=== PATIENT | female | born 1955 | race Caucasian/White ===

== ENCOUNTER 2016-08-02 13:29 | Inpatient (IN) | payer OTHER ==
[~2016-08-02] VITALS: Ht 154.9 cm; Wt 68.0 kg
[~2016-08-02 13:29] MED LIST: ATIVAN1 MG PO; CELEXA20 MG PO; NITROGLYCE0.4 MG/Act SL
[2016-08-02 13:32] VITALS: BP 142/68
--- NOTE | 2016-08-02 13:40 | NUR ---
EKG REVIEWED BY MD BONE TO WAIT FOR AVAILABLE ROOM---PT DESCRIBED PAIN NOW MILD DISCOMFORT--FULL CLEAR SPEECH WITH S/S RESP DISTRESS OR ADDED CP
--- NOTE | 2016-08-02 14:28 | NUR ---
Patient ambulated to bed 1.
--- NOTE | 2016-08-02 14:36 | NUR ---
61/F C/O PRESSURE TYPE CP RADIATING TO JAW @ NOON. TOOK 1 NITRO TAB. CURRENTLY MILD DISCOMFORT TO BACK OF HEAD /NECK. HX TX 2011, DEPRESSION, AND ANXIETY. DENIES N/V/D; SKIN IS PINK/WARM/DRY; AAOX4 WITH EVEN AND STEADY GAIT; LUNGS CLEAR BL; HR EVEN AND REGULAR; PT DENIES ANY FEVER, SOB, OR COUGH AT THIS TIME; PATIENT STATES DISCOMFORT OF 2/10 AT THIS TIME; VSS; PATIENT POSITIONED FOR COMFORT; HOB ELEVATED; BEDRAILS UP X2; BED DOWN. ER MD MADE AWARE OF PT STATUS.
--- NOTE | 2016-08-02 15:30 | NUR ---
Patient being evaluated by physician at bedside.
[2016-08-02] MEDS ORDERED: ASPIRIN 81 MG TAB.CHEW PO ONE (15:40)
--- NOTE | 2016-08-02 16:49 | NUR ---
Patient will be admitted to care of DR. IRIZARRY. Admited to TELE. Will go to [id number]. Belongings list completed. Report GIVEN to NILESH MADDOX.
[2016-08-02] MEDS ORDERED: NITROGLYCERIN 0.4 MG TAB SL PRN (16:50)
[2016-08-02] MEDS ORDERED: DOCUSATE SODIUM 250 MG GELCAP PO PRN (16:50)
[2016-08-02] MEDS ORDERED: POTASSIUM CHLORIDE 10 MEQ TABER PO PRN (16:50)
[2016-08-02] MEDS ORDERED: guaiFENesin DM 200/20 MG-10 ML 10 ML UDC PO PRN (16:50)
[2016-08-02] MEDS ORDERED: MAGNESIUM OXIDE 400 MG TAB PO PRN (16:50)
[2016-08-02] MEDS ORDERED: MORPHINE SULFATE 2 MG/ML SYR IVP PRN (16:50)
[2016-08-02] MEDS ORDERED: MAG SULF 2000 MG/WATER PREMIX 50 ML IV PRN (16:50)
[2016-08-02] MEDS ORDERED: SODIUM PHOSPHATE 118 ML ENEM RC PRN (16:50)
[2016-08-02] MEDS ORDERED: HYDROcodone/APAP 5/325 MG 1 TAB TAB PO PRN ×2 (16:50)
[2016-08-02] MEDS ORDERED: ACETAMINOPHEN 650 MG SUPP RC PRN (16:50)
[2016-08-02] MEDS ORDERED: ALUMINUM HYD/MAG/SIMETHICONE 30 ML UDC PO PRN (16:50)
[2016-08-02] MEDS ORDERED: ONDANSETRON 4 MG/2 ML VIAL IVP PRN (16:50)
[2016-08-02] MEDS ORDERED: cloNIDine 0.1 MG TAB PO PRN (16:50)
[2016-08-02] MEDS ORDERED: BISACODYL 10 MG SUPP RC PRN (16:50)
[2016-08-02] MEDS ORDERED: POTASSIUM CHLORIDE 40 MEQ, LIDOCAINE 1% 25 MG in NACL 0.9% 250 ML IV PRN (16:50)
[2016-08-02] MEDS ORDERED: ALBUTEROL 0.083% 2.5 MG/3 ML NEBU INH PRN (16:50)
[2016-08-02] MEDS ORDERED: IPRATROPIUM 0.02% 0.5 MG/2.5 ML NEBU INH PRN (16:50)
[2016-08-02] MEDS ORDERED: ACETAMINOPHEN 325 MG TAB PO PRN (16:50)
[2016-08-02] MEDS ORDERED: diphenhydrAMINE 50 MG/ML VIAL IVP PRN (16:50)
[2016-08-02 17:10] VITALS: BP 135/103
--- NOTE | 2016-08-02 17:10 | NUR ---
RECEIVED PATIENT FROM ER WITH CHIEF COMPLAINING OF CHEST PAIN. PATIENT APPEARED TO BE CALM AWAKE AND RESTING WELL. AAOX4 NO SOB OR SIGN OF RESPIRATORY DISTRESS NOTED. INITIAL ASSESSMENT DONE. SKIN INTACT. PATIENT DENIED ANY PAIN OR CHEST DISCOMFORT AT THIS TIME. LUNG SOUNDED CLEAR. PATIENT HAS IV TO RIGHT WRIST 22G INTACT AND FLUSHED WELL. MRSA SWAB DONE. REORIENTED PATIENT TO CURRENT UNIT. PLAN OF CARE AND MANAGEMENT DISCUSSED, PATIENT VERBALIZED UNDERSTANDING. CALL LIGHT WITHIN REACH. FAMILY MEMBER AT BEDSIDE. WILL CONTINUE TO MONITOR.
--- NOTE | 2016-08-02 18:10 | NUR ---
RECEIVED TELEPHONE ORDER FROM DR PATRICK FOR SHELDON SCAN AT NOON TOMORROW.
--- NOTE | 2016-08-02 19:22 | NUR ---
ENDORSED PATIENT CURRENT PLAN OF CARE TO NIGHT NURSE DEONDRE GALLOWAY. PATIENT SLEEP WELL IN BED WITH NO SIGN OF DISTRESS NOTED.
--- NOTE | 2016-08-02 19:23 | NUR ---
RECEIVED PT IN STABLE CONDITION FROM NILESH MADDOX. NO SOB, NO SIGNS OF DISTRESS. PT DENIES PAIN AT THIS TIME. VS STABLE ON ROOM AIR. PT C/O ANXIETY, WILL MEDICATE PER MD ORDER. IV TO RT WRIST 22G PATENT, ASYMPTOMATIC, INTACT, SALINE LOCKED. SKIN INTACT. PLAN OF CARE DISCUSSED WITH PT. SAFETY MEASURES IN PLACE. CALL LIGHT WITHIN REACH. WILL CONTINUE TO MONITOR.
--- NOTE | 2016-08-02 19:25 | NUR ---
RECEIVED PATIENT FROM ER WITH CHIEF COMPLAINING OF CHEST PAIN. PATIENT APPEARED TO BE CALM AWAKE AND RESTING WELL. AAOX4 NO SOB OR SIGN OF RESPIRATORY DISTRESS NOTED. INITIAL ASSESSMENT DONE. SKIN INTACT. PATIENT DENIED ANY PAIN OR CHEST DISCOMFORT AT THIS TIME. LUNG SOUNDED CLEAR. PATIENT HAS IV TO RIGHT WRIST 22G INTACT AND FLUSHED WELL. MRSA SWAB DONE. REORIENTED PATIENT TO CURRENT UNIT. PLAN OF CARE AND MANAGEMENT DISCUSSED, PATIENT VERBALIZED UNDERSTANDING. CALL LIGHT WITHIN REACH. FAMILY MEMBER AT BEDSIDE. WILL CONTINUE TO MONITOR. Addendum: 08/02/16 at 1927 by Homer Verma RN WRONG PATIENT.
[2016-08-02 20:00] VITALS: BP 114/62
[2016-08-02] MEDS: LORazepam 2 MG/ML VIAL IVP PRN (20:53)
--- NOTE | 2016-08-02 20:53 | NUR ---
MEDICATED PT FOR ANXIETY PER MD ORDER. PT TOLERATED WELL. NO SOB, NO SIGNS OF DISTRESS. IV SITE ASYMPTOMATIC, INTACT, PATENT, SALINE LOCKED. PLAN OF CARE DISCUSSED WITH PT. SAFETY MEASURES IN PLACE. CALL LIGHT WITHIN REACH. WILL CONTINUE TO MONITOR.
--- NOTE | 2016-08-02 22:11 | NUR ---
PT ASLEEP IN BED. NO SOB, NO SIGNS OF DISTRESS. IV SITE ASYMPTOMATIC, INTACT, PATENT, SALINE LOCKED. SAFETY MEASURES IN PLACE. CALL LIGHT WITHIN REACH. WILL CONTINUE TO MONITOR.
--- NOTE | 2016-08-02 23:10 | NUR ---
PT ASLEEP, ROOM AIR , SAT 97%, NO SOB OR DISTRESS NOTED, NO HHN TX NEEDED AT THIS TIME
[2016-08-03] VITALS: BP 100/72
--- NOTE | 2016-08-03 00:06 | NUR ---
VS STABLE ON ROOM AIR. NO SOB, NO SIGNS OF DISTRESS. IV SITE ASYMPTOMATIC, INTACT, PATENT, SALINE LOCKED. PT DENIES PAIN AT THIS TIME. PLAN OF CARE DISCUSSED WIT PT. SAFETY MEASURES IN PLACE. CALL LIGHT WITHIN REACH. WILL CONTINUE TO MONITOR.
[2016-08-03 04:00] VITALS: BP 116/57
--- NOTE | 2016-08-03 07:05 | NUR ---
RECEIVED REPORT FROM NIGHT NURSE NILESH KELLY. PATIENT APPEARED TO BE CALM FULLY AWAKE AND RESTING WELL IN BED. AAOX4 NO SOB OR SIGN OF RESPIRATORY DISTRESS NOTED. INITIAL ASSESSMENT DONE. SKIN INTACT. PATIENT DENIED ANY PAIN OR CHEST DISCOMFORT AT THIS TIME. LUNG SOUNDED CLEAR. PATIENT HAS IV TO RIGHT WRIST 22G INTACT AND FLUSHED WELL. PLAN OF CARE AND MANAGEMENT DISCUSSED, PATIENT VERBALIZED UNDERSTANDING. CALL LIGHT WITHIN REACH. WILL CONTINUE TO MONITOR.
--- NOTE | 2016-08-03 07:15 | NUR ---
ENDORSED PT IN STABLE CONDITION TO NILESH MADDOX. ALL NEEDS HAVE BEEN MET AT THIS TIME.
[2016-08-03] MEDS ORDERED: REGADENOSON 0.4 MG/5 ML SYR IV ONE (07:55)
[2016-08-03 08:00] VITALS: BP 108/59
--- NOTE | 2016-08-03 08:28 | NUR ---
PATIENT HAS BEEN SCREENED AND CATEGORIZED MODERATE NUTRITION RISK. PATIENT WILL BE SEEN WITHIN 3-5 DAYS OF ADMISSION. 08/05/16-08/07/[address]
[2016-08-03] MEDS: ASPIRIN 81 MG TAB.CHEW PO SCH (08:36)
[2016-08-03] MEDS: CITALOPRAM 20 MG TAB PO SCH (08:36)
--- NOTE | 2016-08-03 08:37 | NUR ---
INSTRUCTED PATIENT TO REMAIN NPO FOR LEXISCAN AT NOON. PATIENT VERBALIZED UNDERSTANDING.
[2016-08-03] MEDS ORDERED: ENOXAPARIN 40 MG/0.4 ML SYR SUBQ SCH (09:00)
--- NOTE | 2016-08-03 11:05 | NUR ---
PATIENT LEFT THE UNIT TO RADIOLOGY FOR SHELDON SCAN, PATIENT IN STABLE CONDITION.
--- NOTE | 2016-08-03 13:53 | NUR ---
CM NOTE INITIAL REVIEW SENT TO [facility] FAX# [phone] ATTN: NOVEMBER # [phone]
--- NOTE | 2016-08-03 14:10 | NUR ---
PATIENT IS BACK TO UNIT FROM [facility]. NO SIGN OF DISTRESS NOTED. DENIED ANY PAIN OR CHEST DISCOMFORT. PATIENT HOWEVER REQUESTED MEDICATION FOR ANXIETY. WILL MEDICATE PATIENT.
[2016-08-03] MEDS: LORazepam 2 MG/ML VIAL IVP PRN (14:28)
--- NOTE | 2016-08-03 15:16 | NUR ---
LEXISCAN STRESS TEST DONE
[2016-08-03 16:00] VITALS: BP 117/68
--- NOTE | 2016-08-03 18:26 | NUR ---
SPOKE TO DR PATRICK AND READ BACK MD IMPRESSION OF LEXISCAN RESULT. RECEIVED TELEPHONE ORDERS FOR LABS DRAWN IN AM TOMORROW.
--- NOTE | 2016-08-03 19:20 | NUR ---
ENDORSED PATIENT CURRENT PLAN OF CARE TO NIGHT NURSE ANAT GALLOWAY. PATIENT RESTING WELL IN BED WITH NO SIGN OF DISTRESS NOTED.
--- NOTE | 2016-08-03 19:25 | NUR ---
RECEIVED PT AWAKE WATCHING A MOVIE ON HER LAPTOP, DENIES ANY PAIN, VITAL SIGNS STABLE, POC DISCUSSED, SAFETY MEASURES IN PLACE, CALL LIGHT WITHIN REACH.
[2016-08-03 20:00] VITALS: BP 112/65
--- NOTE | 2016-08-03 21:27 | NUR ---
ROUNDED ON PT, SEEN SLEEPING, NO SIGNS OF DISTRESS, MONITORED CLOSELY.
[2016-08-03] MEDS ORDERED: SIMVASTATIN 40 MG TAB PO SCH (22:03)
[2016-08-03] MEDS ORDERED: METOPROLOL 25 MG TAB PO SCH (22:03)
--- NOTE | 2016-08-03 22:41 | NUR ---
STARTED ON LOPRESSOR AND ZOCOR MEDICATION ORDERED BY DR PATRICK, EDUCATION PROVIDED, MADE AWARE OF TRANSFER TO [facility] IN AM FOR A PROCEDURE, INSTRUCTED NPO AFTER BREAKFAST TOMORROW, VERBALIZED UNDERSTANDING.
[2016-08-04] VITALS: BP 114/72
--- NOTE | 2016-08-04 | NUR ---
PT SLEEPING, EASILY AROUSABLE, VITAL SIGNS STABLE, DENIES ANY PAIN, CONTINUE TO MONITOR CLOSELY.
[2016-08-04 04:20] VITALS: BP 113/70
--- NOTE | 2016-08-04 04:30 | NUR ---
ASLEEP, EASILY AROUSABLE, VITAL SIGNS STABLE, DENIES ANY PAIN, TRANSFER CONSENT FORM SIGNED, MONITORED CLOSELY.
--- NOTE | 2016-08-04 05:25 | NUR ---
CALLED DIETARY AND SPOKE TO DEON TO REQUEST IF THEY CAN BRING BREAKFAST A LITTLE EARLY AT 0700, SHE SAID SHE WILL TALKED TO THE COOK AND WILL TRY TO ACCOMMODATE THE REQUEST.
--- NOTE | 2016-08-04 06:40 | NUR ---
AM LABS DRAWN, AMBULATED TO BR WITH STEADY GAIT AND VOIDED FREELY, BREAKFAST TRAY ARRIVED AND GIVEN TO PT, AWARE OF NPO STATUS AFTER BREAKFAST.
--- NOTE | 2016-08-04 07:21 | NUR ---
PT AWAKE, JUST FINISHED EATING BREAKFAST, REPORT GIVEN TO ANDREW GALLOWAY FOR CONTINUITY OF CARE.
--- NOTE | 2016-08-04 07:25 | NUR ---
RECEIVED PT FROM NILESH COPPOLA AWAKE AND EATING BREAKFAST. AAOX4, WITH IV ACCESS ON RIGHT WRIST 22G ON SALINE LOCK INTACT AND PATENT. SKIN IS INTACT. DISCUSSED PLAN OF CARE AND TRANSFER TO [facility], PT VERBALIZED UNDERSTANDING. CALL LIGHT WITHIN REACH, WILL CONTINUE TO MONITOR.
[2016-08-04] MEDS ORDERED: ALBUTEROL 0.083% 2.5 MG/3 ML NEBU INH PRN (07:48)
[2016-08-04] MEDS ORDERED: IPRATROPIUM 0.02% 0.5 MG/2.5 ML NEBU INH PRN (07:49)
[2016-08-04 08:00] VITALS: BP 136/73
[2016-08-04] MEDS ORDERED: METOPROLOL 25 MG TAB PO SCH (09:00)
[2016-08-04] MEDS: ASPIRIN 81 MG TAB.CHEW PO SCH (09:00)
[2016-08-04] MEDS: CITALOPRAM 20 MG TAB PO SCH (09:00)
--- NOTE | 2016-08-04 09:00 | NUR ---
DUE MEDS HELD, PT ON NPO. DR PATRICK IN THE ROOM TO SEE PT.
--- NOTE | 2016-08-04 09:30 | NUR ---
DR. PATRCIK CAME AND SAW PT. EXPLAINED TO PT WHY SHE IS BEING TRANSFERRED AND WHAT SHE IS HAVING DONE OVER THERE AT [facility]. PT VERBALIZED UNDERSTANDING. CONSENT IS SIGNED AND IN CHART. WILL CONTINUE TO MONITOR PT. Addendum: 08/04/16 at 1135 by Cee Babcock RN WRONG PT. NILESH
--- NOTE | 2016-08-04 09:33 | NUR ---
CM NOTE SPOKE TO FALLON OF [facility] WHO IS AWARE OF THE PATIENT'S SCHEDULE FOR A PROCEDURE PH# [phone]. SPOKE TO MOIZ NOVEMBER OF [facility] PH# [phone] AND SHE PROVIDED THE ALS AMBULANCE AUTH# [id number]. SPOKE TO ZABRINA OF [facility] PH# TO SET UP TRANSPORT. PATIENT WILL BE PICKED UP BY [facility] AT 1000AM TIME TODAY GOING TO [facility] FOR PROCEDURE, WILL PASS BY THEIR ER FIRST IT IS THEIR POLICY. CHARGE NURSE JIMMY EXT [phone] AND BEDSIDE NURSE ANDREW EXT [phone] AWARE.
--- NOTE | 2016-08-04 09:50 | NUR ---
WENT OVER THE DISCHARGE EDUCATION. ANSWERED ALL QUESTIONS THAT THE PT HAD. PT VERBALIZED UNDERSTANDING. SIGNED THE D/C PAPERS. PT IN HER OWN CLOTHES. ALL PERSONALIZED ITEMS IN BAG. DAUGHTER AT BEDSIDE. READY TO GO . IV STILL INTACT. TELE BOX STILL INTACT. WILL WAIT TO REMOVE UNTIL [facility] ARRIVES.
--- NOTE | 2016-08-04 10:17 | NUR ---
CM NOTE CONCURRENT REVIEW SENT TO [facility] FAX# [phone] ATTN: NOVEMBER # [phone]
--- NOTE | 2016-08-04 10:28 | NUR ---
CM NOTE PATIENT HAS NOT BEEN PICKED UP BY [facility] YET. SPOKE WITH SALUD OF [facility] PH# [phone] TO FOLLOW UP WHY PATIENT HAS NOT BEEN PICKED UP YET WHEN IT WAS REQUESTED THAT EXECUTIVE ACCOUNT MANAGER TIME IS 1000AM TODAY. SALUD OF [facility] SAID THAT THEIR ALS AMB WILL NOT BE AVAILABLE UNTIL ANOTHER 60-90MINS. NURSE ANDREW EXT [phone] AWARE.
--- NOTE | 2016-08-04 10:30 | NUR ---
SPOKE TO PT. NOTIFIED HER THAT [facility] WILL BE HERE IN ANOTHER 60-90 MIN. NO COMPLAINTS AT THIS TIME. DAUGHTER AT BEDSIDE. WILL CONTINUE TO MONITOR PT.
--- NOTE | 2016-08-04 11:20 | NUR ---
PAGED DR. PATRICK TO NOTIFY HIM OF THE DELAY IN TRANSFER. WAITING FOR HIS CALL.
--- NOTE | 2016-08-04 11:40 | NUR ---
[facility] IS HERE TO TRANSPORT PT. PT IS READY. REMOVED HER TELE BOX, AND HER WRIST BANDS BEFORE SHE LEFT. GAVE REPORT TO THE TRANSPORT. THEY ARE TO GO TO ER AND GET HER PROCESSED THROUGH THERE. TRANSPORTERS ARE AWARE.
--- NOTE | 2016-08-04 11:50 | NUR ---
GAVE REPORT TO MATHEUS JOHNSON RN AT [facility]. REPORTED THAT THE PT IS ON HER WAY VIA [facility].
[2016-08-04] MEDS ORDERED: SIMVASTATIN 40 MG TAB PO SCH (21:00)
== END 2016-08-04 11:45 | disposition short-term general hospital (02) | DRG 198 ==
LOC: MED 13:29 → MTU 16:43
PROVIDERS: ADMIT Internal Medicine Pulmonary Disease; ATTEND Internal Medicine Pulmonary Disease
DX: I25.110 Atherosclerotic heart disease of native coronary artery with unstable angina pectoris (principal); I10 Essential (primary) hypertension; E05.90 Thyrotoxicosis, unspecified without thyrotoxic crisis or storm; F32.9 Major depressive disorder, single episode, unspecified; F41.9 Anxiety disorder, unspecified; Z90.722 Acquired absence of ovaries, bilateral; I25.2 Old myocardial infarction; Z90.49 Acquired absence of other specified parts of digestive tract

== ENCOUNTER 2016-08-04 19:59 | Emergency (ER) | payer OTHER ==
[~2016-08-04] VITALS: Ht 154.9 cm; Wt 68.5 kg
[2016-08-04 20:18] VITALS: BP 109/49
--- NOTE | 2016-08-04 20:56 | NUR ---
PATIENT LEFT WITHOUT BEING SEEN BY DR. GARCIA. NO FURTHER CARE PROVIDED FOR PATIENT.
== END 2016-08-04 20:56 | disposition left against medical advice (07) ==
LOC: MED 19:59
DX: R20.0 Anesthesia of skin (principal); Z53.21 Procedure and treatment not carried out due to patient leaving prior to being seen by health care provider

== ENCOUNTER 2017-03-12 10:51 | Emergency (ER) | payer OTHER ==
[~2017-03-12] VITALS: Ht 154.9 cm; Wt 67.6 kg
[~2017-03-12 10:51] MED LIST changes: -ATIVAN1 MG PO; -CELEXA20 MG PO; +CITA20TA15 PO; +LORA-476 PO; +NITR0.4S14 SL; -NITROGLYCE0.4 MG/Act SL
[2017-03-12 11:02] VITALS: BP 93/74
[2017-03-12] MEDS ORDERED: ONDANSETRON 4 MG ODT PO ONE (11:05)
[2017-03-12] MEDS ORDERED: LORazepam 0.5 MG TAB PO ONE (11:05)
[2017-03-12 11:34] LABS: APPEARANCE,URINE CLEAR (CLEAR); BILIRUBIN,URINE NEGATIVE (NEGATIVE); BLOOD, URINE NEGATIVE (NEGATIVE); COLOR,URINE YELLOW (YELLOW); LEUKOCYTE ESTERASE ,URINE NEGATIVE (NEGATIVE); NITRITE, URINE NEGATIVE (NEGATIVE); UGLUCOSE NEGATIVE (NEGATIVE)
[2017-03-12 11:35] LABS: ANION GAP 8.4 (8-16); CREATININE 0.7 mg/dL (0.6-1.3); POTASSIUM 3.4 mmol/L (3.5-5.1)
[2017-03-12 11:41] LABS: ALBUMIN 3.6 g/dL (3.4-5.0); TOTAL BILIRUBIN 0.6 mg/dL (0.0-1.0)
[2017-03-12 11:45] LABS: RBC,URINE 0-5 (RARE) /HPF (0-5); WBC,URINE 0-5 (RARE) /HPF (0-5)
[2017-03-12 11:54] LABS: BASOPHILS # (AUTO) 0.2 K/uL (0.00-0.22); BASOPHILS % (AUTO) 4.1 % (0.0-2.0); EOSINOPHILS % (AUTO) 0.8 % (0.0-4.0); HEMATOCRIT 42.4 % (36-48); HEMOGLOBIN 13.8 g/dL (12.0-16.0); LYMPHOCYTES # (AUTO) 0.9 K/uL (2.5-16.5); LYMPHOCYTES % (AUTO) 16.3 % (20.5-51.1); MEAN CORPUSCULAR HEMOGLOBIN 29 pg (27-31); MEAN CORPUSCULAR HGB CONC 33 g/dL (33-37); MEAN CORPUSCULAR VOLUME 88 fL (80-94); MONOCYTES # (AUTO) 0.4 K/uL (0.8-1.0); MONOCYTES % (AUTO) 7.4 % (1.7-9.3); NEUTROPHILS # (AUTO) 4.2 K/uL (1.8-7.7); NEUTROPHILS % (AUTO) 71.4 % (42.2-75.2); PLATELET COUNT (AUTO) 200 K/uL (140-450); RED BLOOD CELL COUNT(AUTO) 4.83 MIL/uL (4.20-5.40); RED CELL DISTRIBUTION WIDTH 13.1 % (11.6-13.7); WHITE BLOOD COUNT (AUTO) 5.7 K/uL (4.8-10.8)
[2017-03-12 12:30] VITALS: BP 126/78
== END 2017-03-12 12:30 | disposition home or self-care (01) ==
LOC: MED 10:51
DX: G25.2 Other specified forms of tremor (principal); R00.2 Palpitations; I25.2 Old myocardial infarction; Z79.899 Other long term (current) drug therapy
CPT/HCPCS: 36415; 80053; 81001; 85025; 93005; 99284; S0119; 99285

== ENCOUNTER 2017-06-12 17:34 | Emergency (ER) | payer OTHER ==
[~2017-06-12] VITALS: Ht 154.9 cm; Wt 70.1 kg
[2017-06-12 18:01] VITALS: BP 121/86
--- NOTE | 2017-06-12 18:34 | NUR ---
PT TAKEN TO BED 10.
[2017-06-12] MEDS ORDERED: ASPIRIN 325 MG TAB ONE (18:43)
[2017-06-12] MEDS ORDERED: ASPIRIN 325 MG TAB PO ONE (18:45)
--- NOTE | 2017-06-12 18:45 | NUR ---
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 NAD; ER MD AWARE OF PT STATUS. PT POSITIONED TO COMFORT, BED DOWN. WILL CONTINUE TO MONITOR.
[2017-06-12 18:58] LABS: BASOPHILS # (AUTO) 0.4 K/uL (0.00-0.22); EOSINOPHILS # (AUTO) 0.1 K/uL (0-0.4); HEMATOCRIT 41.1 % (36-48); HEMOGLOBIN 13.6 g/dL (12.0-16.0); LYMPHOCYTES # (AUTO) 1.7 K/uL (2.5-16.5); MEAN CORPUSCULAR HEMOGLOBIN 29 pg (27-31); MEAN CORPUSCULAR HGB CONC 33 g/dL (33-37); MEAN CORPUSCULAR VOLUME 88 fL (80-94); NEUTROPHILS # (AUTO) 4.3 K/uL (1.8-7.7); PLATELET COUNT (AUTO) 248 K/uL (140-450); RED BLOOD CELL COUNT(AUTO) 4.67 MIL/uL (4.20-5.40); RED CELL DISTRIBUTION WIDTH 12.4 % (11.6-13.7); WHITE BLOOD COUNT (AUTO) 7.5 K/uL (4.8-10.8)
--- NOTE | 2017-06-12 19:15 | NUR ---
Pt report given to Pim Rn. Transfer of care at this time.
[2017-06-12 19:16] LABS: ANION GAP 10.8 (8-16); CARBON DIOXIDE 27.2 mmol/L (21-32); CREATININE 0.8 mg/dL (0.6-1.3); PROTHROMBIN TIME 10.2 secs (10.8-13.4)
--- NOTE | 2017-06-12 19:16 | NUR ---
GOT REPORT FROM NILESH HECTOR. PT. RESTING IN BED, NO S/SX OF DISTRESS AT THIS TIME.
[2017-06-12 19:21] LABS: ALBUMIN 3.5 g/dL (3.4-5.0); TOTAL BILIRUBIN 0.4 mg/dL (0.0-1.0)
[2017-06-12] MEDS ORDERED: POTASSIUM CHLORIDE 10 MEQ TABER PO ONE (19:45)
[2017-06-12 20:06] VITALS: BP 117/66
--- NOTE | 2017-06-12 20:06 | NUR ---
Patient discharged with v/s stable. Written and verbal after care instructions given and explained. Patient verbalized understanding. Ambulatory with steady gait. All questions addressed prior to discharge. Advised to follow up with PMD.
[2017-06-13] MEDS ORDERED: ASPIRIN 325 MG TABEC PO SCH (09:00)
== END 2017-06-12 20:06 | disposition home or self-care (01) ==
LOC: MED 17:34
DX: R07.89 Other chest pain (principal); R20.0 Anesthesia of skin; R68.84 Jaw pain; F41.9 Anxiety disorder, unspecified; F32.9 Major depressive disorder, single episode, unspecified; I25.2 Old myocardial infarction; E03.9 Hypothyroidism, unspecified; Z79.899 Other long term (current) drug therapy
CPT/HCPCS: 36415; 71010; 80053; 83880; 84484; 85025; 85610; 85730; 93005; 99285; Q0092

== ENCOUNTER 2017-12-07 16:44 | Emergency (ER) | payer OTHER ==
[~2017-12-07] VITALS: Ht 154.9 cm; Wt 65.8 kg
[2017-12-07 16:54] VITALS: BP 150/84
[2017-12-07 20:00] VITALS: BP 148/80
== END 2017-12-07 17:58 | disposition home or self-care (01) ==
LOC: MED 16:44
DX: N39.0 Urinary tract infection, site not specified (principal); R51 Headache; I25.2 Old myocardial infarction; E03.9 Hypothyroidism, unspecified; Z98.890 Other specified postprocedural states
CPT/HCPCS: 81002; 99283

== ENCOUNTER 2018-04-09 20:06 | Emergency (ER) | payer OTHER ==
[~2018-04-09] VITALS: Ht 154.9 cm; Wt 65.8 kg
[2018-04-09 20:09] VITALS: BP 153/86
[2018-04-09] MEDS ORDERED: FLUO10CA21 PO (20:19)
[2018-04-09] MEDS ORDERED: METH500T14 PO (20:20)
--- NOTE | 2018-04-09 20:43 | NUR ---
PATIENT LEFT WITHOUT BEING SEEN BY DR. GARCIA. NO FURTHER CARE PROVIDED FOR PATIENT.
--- NOTE | 2018-04-09 20:43 | NUR ---
PT WALKED IN TO BED 3, STATES " I THINK IM GOING TO LEAVE, I ACTUALLY FEEL BETTER". PATIENT LEFT ED UNIT.
== END 2018-04-09 20:43 | disposition left against medical advice (07) ==
LOC: MED 20:06
DX: K13.0 Diseases of lips (principal); Z53.21 Procedure and treatment not carried out due to patient leaving prior to being seen by health care provider

== ENCOUNTER 2018-05-22 11:45 | Emergency (ER) | payer OTHER ==
[~2018-05-22] VITALS: Ht 154.9 cm; Wt 65.8 kg
[~2018-05-22 11:45] MED LIST changes: -CITA20TA15 PO; +FLUO10CA21 PO; -LORA-476 PO; +METH500T14 PO
[2018-05-22 11:48] VITALS: BP 138/56
[2018-05-22 13:09] VITALS: BP 128/67
== END 2018-05-22 13:09 | disposition home or self-care (01) ==
LOC: MED 11:45
DX: F41.9 Anxiety disorder, unspecified (principal); K21.9 Gastro-esophageal reflux disease without esophagitis; E07.9 Disorder of thyroid, unspecified; Z79.899 Other long term (current) drug therapy
CPT/HCPCS: 81002; 93005; 99283

== ENCOUNTER 2018-07-09 09:37 | Emergency (ER) | payer OTHER ==
[~2018-07-09] VITALS: Ht 154.9 cm; Wt 67.6 kg
[2018-07-09 09:43] VITALS: BP 114/62
--- NOTE | 2018-07-09 09:48 | NUR ---
PT AMBULATES TO BED 7
--- NOTE | 2018-07-09 10:15 | NUR ---
BIB SELF. C/O LLQ ABD PAIN X 2 WEEKS STATES IT STARTED SUDDENLY WHEN SHE WAS WALKING. DENIES CONSTIPATION, DENIES BLOOD IN URINE. PT REPORTS PAIN 5/10, RADIATING TO LEFT LEG. PT ALSO STATES SHE SUFFERS FROM ANXIETY AND FEELS A LITTLE SHORT OF BREATH AND CHEST PRESSURE. DENIES OTHER SYMPTOMS AT THIS TIME.
--- NOTE | 2018-07-09 10:34 | NUR ---
Patient being evaluated by physician at bedside.
--- NOTE | 2018-07-09 10:50 | NUR ---
PT TAKEN TO CT VIA WHEELCHAIR
--- NOTE | 2018-07-09 11:01 | NUR ---
PT RETURNED FROM CT
[2018-07-09 11:15] LABS: BASOPHILS % (AUTO) 0.7 % (0.0-2.0); EOSINOPHILS # (AUTO) 0.1 K/uL (0-0.4); EOSINOPHILS % (AUTO) 1.7 % (0.0-4.0); HEMATOCRIT 43.8 % (36-48); HEMOGLOBIN 14.1 g/dL (12.0-16.0); LYMPHOCYTES # (AUTO) 1.6 K/uL (2.5-16.5); LYMPHOCYTES % (AUTO) 36.1 % (20.5-51.1); MEAN CORPUSCULAR HEMOGLOBIN 28 pg (27-31); MEAN CORPUSCULAR HGB CONC 32 g/dL (33-37); MEAN CORPUSCULAR VOLUME 87.4 fL (80-94); MONOCYTES # (AUTO) 0.3 K/uL (0.8-1.0); MONOCYTES % (AUTO) 7.3 % (1.7-9.3); NEUTROPHILS # (AUTO) 2.4 K/uL (1.8-7.7); NEUTROPHILS % (AUTO) 54.2 % (42.2-75.2); PLATELET COUNT (AUTO) 222 K/uL (140-450); RED BLOOD CELL COUNT(AUTO) 5.01 MIL/uL (4.20-5.40); RED CELL DISTRIBUTION WIDTH 13.7 % (11.6-13.7); WHITE BLOOD COUNT (AUTO) 4.5 K/uL (4.8-10.8)
[2018-07-09 11:17] LABS: APPEARANCE,URINE CLEAR (CLEAR); BILIRUBIN,URINE NEGATIVE (NEGATIVE); BLOOD, URINE NEGATIVE (NEGATIVE); COLOR,URINE YELLOW (YELLOW); LEUKOCYTE ESTERASE ,URINE TRACE (NEGATIVE); NITRITE, URINE NEGATIVE (NEGATIVE); UGLUCOSE NEGATIVE (NEGATIVE)
[2018-07-09 11:23] LABS: WBC,URINE 6-15 (FEW) /HPF (0-5)
[2018-07-09 11:24] LABS: RBC,URINE NONE SEEN /HPF (0-5)
[2018-07-09 11:35] LABS: ALBUMIN 3.9 g/dL (3.4-5.0); ANION GAP 11.5 (8-16); CARBON DIOXIDE 30.3 mmol/L (21-32); CREATININE 0.7 mg/dL (0.6-1.3); POTASSIUM 3.8 mmol/L (3.5-5.1); TOTAL BILIRUBIN 0.3 mg/dL (0.0-1.0)
--- NOTE | 2018-07-09 11:59 | NUR ---
REPORT GIVEN TO NILESH GORDON FOR CONTINUED CARE. PATIENT STABLE AT THIS TIME.
[2018-07-09 12:24] VITALS: BP 127/89
== END 2018-07-09 12:24 | disposition home or self-care (01) ==
LOC: MED 09:37
DX: R10.32 Left lower quadrant pain (principal); K21.9 Gastro-esophageal reflux disease without esophagitis; I25.2 Old myocardial infarction; E07.9 Disorder of thyroid, unspecified; Z79.899 Other long term (current) drug therapy; Z98.890 Other specified postprocedural states
CPT/HCPCS: 36415; 80053; 81001; 83690; 85025; 87086; 99284